=== PATIENT | female | born 1965 | race Caucasian/White ===

== ENCOUNTER 2016-11-09 11:00 | Inpatient (IN) | payer OTHER ==
[~2016-11-09] VITALS: Ht 167.6 cm; Wt 76.0 kg
--- NOTE | ~2016-11-09 | DS ---
PATIENT'S NAME: YON LUCERO [facility] AGE: 51 Y [address] ROOM: [address] [place], [place] [address] LOCATION: [facility] [place] ADMIT DATE: 11/15/2016 Discharge Summary DISCHARGE DATE: 11/18/2016 FAMILY PHYSICIAN: Hakan Patel MD ATTENDING PHYSICIAN: Raulito Cervantes ADMISSION MAIN DIAGNOSES: 1. Large right L5-S1 disk herniation with severe right S1 radiculopathy. 2. L4-L5, L5-S1 degenerative joint disease with mechanical low back pain. DISCHARGE MAIN DIAGNOSES: 1. Large right L5-S1 disk herniation with severe right S1 radiculopathy. 2. L4-L5, L5-S1 degenerative joint disease with mechanical low back pain. PROCEDURES DURING ADMISSION: 1. L4-L5, L5-S1 interbody and posterolateral instrumented arthrodesis. 2. L5-S1 osteotomy. 3. Right L5-S1 diskectomy and decompression of the right S1 nerve roots. COMPLICATIONS DURING ADMISSION: None. FOLLOWUP APPOINTMENTS AND DISCHARGE INSTRUCTIONS: 1. Myself on November 27, 2016, for staple removal. 2. Corset brace when mobilizing. 3. Call my office for any concerns regarding the wound healing or for any new neurologic symptoms. 4. No heavy lifting, no back twisting, no forward bending. 5. Keep the dressing on and dry until November 25, then take off and keep the wound open to air. MEDICATIONS ON DISCHARGE: 1. Ferrous sulfate 325 mg p.o. once daily. 2. Gabapentin 100 mg p.o. t.i.d. for 3 days, then 100 mg p.o. b.i.d. for 3 days, then stop. 3. OxyContin 10 mg p.o. b.i.d. 4. Flexeril 10 mg p.o. q.8 hours p.r.n. 5. Tramadol 50 to 100 mg p.o. every 6 hours p.r.n. HOSPITAL COURSE: The above patient was admitted electively to the hospital with the above-mentioned diagnoses. She underwent an unremarkable operation. Postoperatively, she did very well. Her preoperative severe right S1 radiculopathy completely resolved. Her pain was initially treated with patient-controlled analgesia and then she was switched to p.o. pain medications. She mobilized well with physiotherapy and occupational therapy. She also had postoperative lumbar spine x-ray and that showed satisfactory PATIENT'S NAME: YON LUCERO [facility] AGE: 51 Y [address] ROOM: [id number] [place] [id number] LOCATION: [facility] [place] ADMIT DATE: 11/15/2016 Discharge Summary DISCHARGE DATE: 11/18/2016 FAMILY PHYSICIAN: Hakan Patel MD ATTENDING PHYSICIAN: Raulito Cervantes placement of the hardware and no complications. She had no new neurological deficits. Her hemoglobin dropped after the surgery to 8.6 and she was transfused 1 unit of packed RBCs. Hemoglobin on the day of discharge was 10. On the day of discharge, the patient was examined. She was doing fairly well. She was mobilizing very well. She had no new neurologic deficits on exam. The wound was healing very well with no evidence of dehiscence or discharge. I reviewed the discharge instructions with the patient and her mother and based on that, the patient was discharged home. MD RAJAN LANG/modl /[id number] CC: Hakan Patel MD d: 11/19/16 0043 t: 11/19/16 1214, DISCHARGE SUMMARY
--- NOTE | ~2016-11-09 | OR ---
PATIENT'S NAME: YON LUCERO [facility] AGE: 51 Y [address] ROOM: [place] [address] LOCATION: G3 ADMIT DATE: 11/15/2016 OR/Procedure Report DISCHARGE DATE: FAMILY PHYSICIAN: NAOMIE WOODALL MD ATTENDING PHYSICIAN: RAULITO CERVANTES SURGEON: Raulito Cervantes MD DIAMOND WHEEL MOLDER: DATE OF PROCEDURE: 11/15/2016 ANESTHESIOLOGIST: Miguel Melgar MD ANESTHESIA: General. COMPLICATIONS: None. ESTIMATED BLOOD LOSS: 300 mL. PREOPERATIVE DIAGNOSES: 1. Right L5-S1 large disk herniation with severe right S1 radiculopathy. 2. L4-L5 degenerative joint disease with a mechanical low back pain. 3. L5-S1 severe degenerative joint disease with mechanical low back pain. POSTOPERATIVE DIAGNOSES: 1. Right L5-S1 large disk herniation with severe right S1 radiculopathy. 2. L4-L5 degenerative joint disease with a mechanical low back pain. 3. L5-S1 severe degenerative joint disease with mechanical low back pain. PROCEDURES PERFORMED: 1. L4-L5 interbody and posterolateral instrumented arthrodesis. 2. L5-S1 interbody and posterolateral instrumented arthrodesis. 3. Right L5-S1 microdiskectomy and decompression of the right S1 nerve root. 4. L5-S1 Rodriguez-Bassett osteotomy (unilateral, asymmetric). 5. Insertion of bilateral L4, L5, and S1 pedicle screws (system used is Globus CREO System). 6. Insertion of an expandable titanium cage into L4-L5 disk space (system used is Globus RISE implant). 7. Insertion of an expandable titanium cage into L5-S1 disk space (system used is Globus RISE implant). 8. Intraoperative fluoroscopy. 9. Insertion of a mixture of autograft, allograft, and DBM bone posterolaterally for the fusion. CLINICAL HISTORY/INDICATIONS FOR PROCEDURE: The patient was diagnosed clinically and on imaging to have the above-mentioned diagnoses. The patient was symptomatic from those conditions. The patient failed conservative PATIENT'S NAME: YON LUCERO [facility] AGE: 51 Y [address] ROOM: [place] [address] LOCATION: [facility] ADMIT DATE: 11/15/2016 OR/Procedure Report DISCHARGE DATE: FAMILY PHYSICIAN: NAOMIE WOODALL MD ATTENDING PHYSICIAN: RAULITO CERVANTES. I recommended the above-mentioned surgeries to the patient to try to relieve her symptoms and improve her functioning. The patient was brought in for the operation. DESCRIPTION OF PROCEDURE: The patient was seen in the preoperative care unit and the correct side was marked. Then, she was transferred to the main operating theater, was given general anesthetic, and underwent endotracheal intubation without complications. Preoperative antibiotics were given. Love catheter, calf compressors, and an arterial line were used throughout the procedure. The patient was then carefully turned to prone position on a gel- padded Roque table and all her joints and bony prominences were securely padded. The lumbar region was exposed. The lumbar region was then prepped and draped as per usual. I started by marking a midline incision and extending from L4 down to S1 spinous processes. The proposed incision was infiltrated with 0.25% Marcaine with epinephrine. The skin was sharply opened down to the subcutaneous tissue, then using monopolar cautery, the posterior elements were exposed from L4 down to the sacrum bilaterally. The correct level was then confirmed using intraoperative fluoroscopy. I started by inserting pedicle screws into L4, L5, and S1 vertebrae. Based on the standard anatomical landmarks and using intraoperative fluoroscopy, bilateral pedicle screws from the Globus CREO System were inserted without complications. The hardware placement was checked using pro-posterior, and lateral projection x-rays. I was satisfied with that. I then proceeded to perform the interbody fusion at L4-L5, L5-S1 levels. I started at L4-L5 level. I did that from the right side. The lateral aspect of the L4 lamina was thinned down to the ligamentum flavum. The intertransverse ligament was also exposed. The ligamentum flavum and the intertransverse ligament were removed to expose the annulus of the L4-L5 disk. The annulus was coagulated and incised. Then, the L4-L5 disk was prepared for the arthrodesis using different sizes curettes, and pituitary rongeur. I was satisfied with that. Then, I packed the anterior aspect of the L4-L5 disk with autograft bone and I also placed a bone morphogenic protein into the anterior aspect of the L4-L5 disk. Then under intraoperative fluoroscopy, an expandable titanium cage from the Globus RISE implant was inserted into the L4- L5 disk and that cage was expanded without complications. I was satisfied with that. Then, I proceeded to perform the interbody fusion at L5-S1 level. I did that from the right side. The lateral aspect of the L5 lamina was thinned down to the ligamentum flavum and the intertransverse ligament. Those ligaments were then removed using Kerrison to expose the annulus of the L5-S1 disk. The annulus was coagulated and the L5-S1 disk was prepared for the fusion using different sizes curettes and pituitary rongeur. I was satisfied PATIENT'S NAME: YON LUCERO [facility] AGE: 51 Y [address] ROOM: [address] [address] LOCATION: [facility] ADMIT DATE: 11/15/2016 OR/Procedure Report DISCHARGE DATE: FAMILY PHYSICIAN: NAOMIE WOODALL MD ATTENDING PHYSICIAN: RAULITO CERVANTES with that. Then, I packed the anterior aspect of the L5-S1 disk with autograft bone and bone morphogenic protein. Then under the guidance of intraoperative fluoroscopy, expandable titanium cage was inserted into L5-S1 disk and that was expanded without complications. I was satisfied with that. Then, I proceeded to perform the Rodriguez-Burks osteotomy at L5-S1 level. I did that from the right side. The spinous process of the L5 and S1 vertebra were removed. Then, using an osteotome, the right L5 inferior facet was completely removed. I then finished the laminectomy using Kerrison rongeur. I also removed the pars interarticularis. The ligamentum flavum was then exposed and that was removed. The medial projecting osteophytes from the S1 superior facet were removed as well. I was satisfied with that. Then, I proceeded to perform the diskectomy at L5-S1 level on the right side. I started by examining the dura and the right S1 nerve root. Immediately, I noticed a very large sequestrated disk fragment located in the axilla of the right S1 nerve root and that was causing severe compression on the nerve root. Using a pituitary rongeur, that disk fragment was completely removed. Any loose fragments were also removed. At the end of that, the right S1 nerve root was completely decompressed. I noticed significant inflammation of the right S1 nerve root from the large disk herniation. I had no complications. Then, I proceeded to insert rods and locked the screws. Two rods were inserted from the CREO System, the screws were capped and finally locked. Final x-ray was performed and that showed satisfactory placement of the hardware. Then, I proceeded to irrigate the wound. The wound was irrigated with bacitracin-containing irrigation. Then using a high-speed Midas Mikey drill, the L4, L5, and S1 laminae were decorticated for the fusion. I also decorticated the left L4-L5, L5-S1 facets to facilitate fusion. The exposed dura was then covered with Gel-Foam. Then, a mixture of autograft, allograft, and DBM bone were placed posterolaterally for the fusion. Then, I proceeded to closure. A 1/8 Hemovac drain was inserted, tunneled, and secured to the skin with 3-0 Prolene. The wound was then closed in layers with #1 Vicryl to the paraspinal muscles, #1 Vicryl to the lumbar fascia, 2-0 Vicryl to the subcutaneous tissue, and elisha for the skin. Sterile dressing was applied. At the end of the operation, the instrument and sponge counts were correct. The patient tolerated the operation without complications. PATIENT'S NAME: YON LUCERO [facility] AGE: 51 Y [address] ROOM: [place] [address] LOCATION: [facility] ADMIT DATE: 11/15/2016 OR/Procedure Report DISCHARGE DATE: FAMILY PHYSICIAN: NAOMIE WOODALL MD ATTENDING PHYSICIAN: RAULITO CERVANTES RAULITO CERVANTES MD AB/modl /[id number] CC: MD Derian Alicea MD P d: 11/15/16 2329 t: 11/17/16 1224, OPERATIVE SUMMARY
[~2016-11-09 11:00] MED LIST: COLACE100 MG PO; DELTASONE20 MG PO; MIRALAX17 GM PO; PERCOCET 5-3251 EACH PO
[2016-11-09] MEDS ORDERED: NEURONTIN100 MG PO (11:21)
--- NOTE | 2016-11-15 16:21 | NUR ---
returned from surgery at 1350. csm adequate. bp 94/70 to 114/70. dilaudid aquaculture director infusing. o2 at 1 l/min. dressing d/i. hemovac intact. jessica- 750 cc. family visit. 2nd hrly at 1830. fly wilks.
--- NOTE | 2016-11-16 04:47 | NUR ---
Significant Event: Dressing was reinforced. CSM WNL. Back brace on when up. Has a jessica catheter. Has a hemovac and had 130ml out. On a BENZENE WASHER. Marc at 2108. Blood pressure issues, hypotension. Had 1 L of Normal saline bolus over 3 hours. On room air. Call MD if SBP is less than 80. Follow up:
[2016-11-16 06:12] LABS: MCV 92.6 fl (83.0-98.0); MPV 8.7 fl (9.4-12.4); RDW-CV 12.8 % (11.9-14.6); WBC 9.4 K/uL (4.0-11.0)
[2016-11-16 06:20] LABS: ANION GAP 10.6 (10.0-19.0); MCH 30.3 pg (27.0-34.0); POTASSIUM 3.6 mMol/L (3.7-5.1); RBC 2.97 M/uL (3.50-5.50)
[2016-11-16 06:21] LABS: HEMATOCRIT 27.5 % (33.0-46.0); MCHC 32.7 gm/dL (32.0-36.5)
--- NOTE | 2016-11-16 10:30 | NUR ---
PT SCREENED D/T MST. WT DOWN 4# (4%) x 1 MONTH - NOT SIGNIFICANT. EATING 75-100% FOR DURATION OF STAY. NO NUTRITION RELATED DIAGNOSIS IDENTIFIED AT THIS TIME.
--- NOTE | 2016-11-16 13:25 | NUR ---
Introduced self and care management services to patient. Lives in [place]. Plans on going home on discharge, mom and son will assist her at home. Has a walker and a toilet riser, does not have a shower chair. Gave her information about [employer] if she wants to borrow equipment. Denies concerns or needs for me today.
[2016-11-16 14:05] LABS: BASOPHIL % 0.1 %; EOSINOPHIL % 0.2 %; HEMATOCRIT 28.4 % (33.0-46.0); HEMOGLOBIN 8.9 g/dL (10.0-15.0); IMMATURE GRANULOCYTE # 0.1 K/uL (0.0-0.3); IMMATURE GRANULOCYTE % 0.7 %; LYMPHOCYTE # 1.2 K/uL (0.8-4.0); LYMPHOCYTE % 11.2 %; MCH 30.1 pg (27.0-34.0); MCHC 31.3 gm/dL (32.0-36.5); MCV 95.9 fl (83.0-98.0); MONOCYTE # 1.4 K/uL (0.0-1.0); MONOCYTE % 12.8 %; NRBC % 0 /100WBC (0-0.00); PLATELET COUNT 178 K/uL (150-450); RBC 2.96 M/uL (3.50-5.50); RDW-CV 13.1 % (11.9-14.6); WBC 10.7 K/uL (4.0-11.0)
[2016-11-16 14:28] LABS: ANION GAP 11.5 (10.0-19.0); BLOOD UREA NITROGEN 11 mg/dL (6-24); CALCIUM 7.6 mg/dL (8.5-10.5); CHLORIDE 109 mMol/L (96-110); CO2 25 mMol/L (22-32); CREATININE 0.6 mg/dL (0.5-1.1); ESTIMATED GFR (MDRD EQUATION) > 60; POTASSIUM 3.5 mMol/L (3.7-5.1); SODIUM 142 mMol/L (135-145)
--- NOTE | 2016-11-16 18:37 | NUR ---
Significant Event: PATIENT ALERT AND ORIENTED X3. BACK DRESSING C/D/I. CSM ASSESSMENTS WNL TO BILATERAL UPPER AND LOWER EXTREMITIES. BACK BRACE ON WITH ACTIVITY AND WHEN IN CHAIR. HEMOVAC PATENT/INTACT TO BACK, DRAINING BLOODY DRAINAGE WITH 80ML OUT. AMBULATES TO BATHROOM AND UP TO CHAIR WITH SBA, USE OF WALKER/GAIT BELT. PATIENT BP 99/56 AT 0705, 81/47 AT 1200, DR. LUJAN NOTIFIED AND ORDER RECEIVED FOR NS 1 LITER IV BOLUS, BP AT 1320 97/53 PRIOR TO BOLUS AND 97/57 AT 1430. [address] LUJAN NOTIFIED OF BP'S AND HGB, NO NEW ORDERS. PATIENT RATED BACK PAIN 7 ON PAIN SCALE, RECEIVED ROUTINE OXYCONTIN AT 0906, ROUTINE NEUROTIN AT 1400, PRN ROXICODONE LAST AT 1644 AND FLEXERIL AT 1448. TAB MACHINE OPERATOR REMAINS AT 60 MINUTE LOCKOUT. NOTE PATIENT RATED PAIN 5 ON PAIN SCALE, AFTER 1644 DOSE OF ROXICODONE. NOTE PATIENT DROWSY/SLEEPY THROUGHOUT SHIFT. DR. GRAHAM NOTIFIED OF PATIENT PAIN, TO RETURN CALL. PATIENT MOTHER AT BEDSIDE, VERY SUPPORTIVE. VOIDING WITHOUT DIFFICULTY. ZOFRAN AT 0800 FOR C/O NAUSEA. Follow up:
--- NOTE | 2016-11-17 04:06 | NUR ---
Shift Summary: Patient having good pain control with 2 roxicodon/Tylenol q 4hr. Last dose at 0351. Patient can get in and out of bed with minimal assist. Ambulate with standby assist. Voided 2500ml this shift. Tolerating regular diet well. Hemovac had 100ml out. Patient did state she had mild numbness/tingling to right foot.
[2016-11-17 06:01] LABS: HEMATOCRIT 26.9 % (33.0-46.0); HEMOGLOBIN 8.5 g/dL (10.0-15.0); MCH 30.2 pg (27.0-34.0); MCHC 31.6 gm/dL (32.0-36.5); MCV 95.7 fl (83.0-98.0); MPV 8.9 fl (9.4-12.4); RBC 2.81 M/uL (3.50-5.50); RDW-CV 13.2 % (11.9-14.6); WBC 8.7 K/uL (4.0-11.0)
[2016-11-17 06:10] LABS: ANION GAP 8.9 (10.0-19.0); POTASSIUM 3.9 mMol/L (3.7-5.1)
--- NOTE | 2016-11-17 19:46 | NUR ---
Significant Event: patient alert and oriented. hgb 8.5, 1 unit of PRBC's given. back pain well controlled with roxicodone 2 tabs and tylenol 650mg given last at 1715. back dressing c/d/i. hemovac drain intact with 50ml out. ambulates to bathroom and up to chair with sba, use of walker/gait belt. back brace on when up. bilateral calf pumps on. csm assessments wnl. Follow up:
--- NOTE | 2016-11-18 04:04 | NUR ---
Significant Event: Pt alert and oriented. Denies numbness and tingling. Neuro's intact. Dsg changed d/t falling off. Just an abd over the incision site. Hemovac intact, 40cc out this shift. Up with A1 and walker to the BR. Family in room. Dilaudid and tylenol q4hrs. D/C today per Billy. Follow up:
[2016-11-18 09:17] LABS: BASOPHIL % 0.4 %; EOSINOPHIL # 0.1 K/uL (0.0-0.5); EOSINOPHIL % 1.4 %; HEMATOCRIT 30.6 % (33.0-46.0); IMMATURE GRANULOCYTE # 0.1 K/uL (0.0-0.3); IMMATURE GRANULOCYTE % 0.6 %; LYMPHOCYTE # 1.2 K/uL (0.8-4.0); LYMPHOCYTE % 15.4 %; MCH 30.1 pg (27.0-34.0); MCHC 32.7 gm/dL (32.0-36.5); MCV 92.2 fl (83.0-98.0); MONOCYTE # 0.7 K/uL (0.0-1.0); MONOCYTE % 9.2 %; MPV 8.8 fl (9.4-12.4); NEUTROPHIL # (ANC) 5.7 K/uL (1.8-7.8); NRBC % 0 /100WBC (0-0.00); PLATELET COUNT 214 K/uL (150-450); RBC 3.32 M/uL (3.50-5.50); RDW-CV 13.5 % (11.9-14.6); WBC 7.8 K/uL (4.0-11.0)
[2016-11-18] MEDS ORDERED: FEOSOL325 MG PO (14:26)
[2016-11-18] MEDS ORDERED: OXYCONTIN EXTEN10 MG PO (14:39)
[2016-11-18] MEDS ORDERED: TYLENOL325 MG PO (14:41)
[2016-11-18] MEDS ORDERED: FLEXERIL10 MG PO (14:41)
[2016-11-18] MEDS ORDERED: ULTRAM50 MG PO (14:43)
--- NOTE | 2016-11-18 14:48 | NUR ---
Significant Event: Pt c/o intermittent lower back pain, partial relief with pain meds. Takes prn pain meds q 4 hrs. Up in recliner, mom helps her to the br. Up with standby assist and walker. Hemovac drain removed by MD and lower back dressing changed by MD. Plans for dc to home this afternoon. Back brace on when up. Follow up:
== END 2016-11-18 16:10 | disposition disaster alternative care site (69) | DRG 460 ==
LOC: G3N 11-15 05:48 → GNTU 11-15 05:48 → G3N 11-15 13:54 → GMSU 11-17 16:25
PROVIDERS: Obstetrics & Gynecology Obstetrics; ADMIT Neurological Surgery
PROC: 0QU00KZ Supplement Lumbar Vertebra with Nonautologous Tissue Substitute, Open Approach (ICD-10-PCS; principal; 2016-11-15)
PROC: 0SG30AJ Fusion of Lumbosacral Joint with Interbody Fusion Device, Posterior Approach, Anterior Column, Open Approach (ICD-10-PCS; principal; 2016-11-15)
PROC: 0QB03ZZ Excision of Lumbar Vertebra, Percutaneous Approach (ICD-10-PCS; principal; 2016-11-15)
PROC: 0SB43ZZ Excision of Lumbosacral Disc, Percutaneous Approach (ICD-10-PCS; principal; 2016-11-15)
PROC: 0SG00AJ Fusion of Lumbar Vertebral Joint with Interbody Fusion Device, Posterior Approach, Anterior Column, Open Approach (ICD-10-PCS; principal; 2016-11-15)
PROC: 30233N1 Transfusion of Nonautologous Red Blood Cells into Peripheral Vein, Percutaneous Approach (ICD-10-PCS; 2016-11-17)
DX: M51.17 Intervertebral disc disorders with radiculopathy, lumbosacral region (principal); D62 Acute posthemorrhagic anemia; M51.16 Intervertebral disc disorders with radiculopathy, lumbar region; Z86.59 Personal history of other mental and behavioral disorders; Z86.69 Personal history of other diseases of the nervous system and sense organs
CPT/HCPCS: C1713; J0690; J1040; J1100; J1170; J1644; J2001; J2405; J3010; J3360; J7030; J7050; P9016

== ENCOUNTER → 2017-03-20 | Outpatient (CLI) | payer OTHER ==
[~2017-03-20] MED LIST changes: +FEOSOL325 MG PO; +FLEXERIL10 MG PO; +NEURONTIN100 MG PO; +OXYCONTIN EXTEN10 MG PO; +TYLENOL325 MG PO; +ULTRAM50 MG PO
== END | disposition disaster alternative care site (69) ==
LOC: GBCOE 12:16
DX: Z12.31 Encounter for screening mammogram for malignant neoplasm of breast (principal)
CPT/HCPCS: G0202